=== PATIENT | female | born 1945 | race Caucasian/White ===

== ENCOUNTER 2020-05-06 17:46 | Emergency (ER) | payer BC ==
[~2020-05-06] VITALS: Ht 167.6 cm; Wt 88.0 kg
[2020-05-06 18:39] VITALS: BP 136/69
--- NOTE | 2020-05-06 18:47 | PHYS DOC ---
Past History Past Medical History: Cancer, High Cholesterol, Hypertension Past Surgical History: Hip Replacement, Knee Replacement, Other Additional Past Surgical Histo: Breast Alcohol Use: None General Adult EDM: Chief Complaint: MULTIPLE COMPLAINTS HPI: HPI: Patient is a [age] year old [sex] who presents with [] Review of Systems: Review of Systems: Constitutional: Denies fever or chills Eyes: Denies change in visual acuity HENT: Denies nasal congestion or sore throat Respiratory: Denies cough or shortness of breath Cardiovascular: Denies chest pain or edema GI: Denies abdominal pain, nausea, vomiting, bloody stools or diarrhea : Denies dysuria Musculoskeletal: Denies back pain or joint pain Integument: Denies rash Neurologic: Denies headache, focal weakness or sensory changes Endocrine: Denies polyuria or polydipsia Lymphatic: Denies swollen glands Psychiatric: Denies depression or anxiety Heart Score: Risk Factors: Risk Factors: DM, Current or recent (<one month) smoker, HTN, HLP, family history of CAD, obesity. Risk Scores: Score 0 - 3: 2.5% MACE over next 6 weeks - Discharge Home Score 4 - 6: 20.3% MACE over next 6 weeks - Admit for Clinical Observation Score 7 - 10: 72.7% MACE over next 6 weeks - Early Invasive Strategies Allergies: Allergies: Allergies Coded Allergies Type Severity Reaction Last Updated Verified Penicillins Allergy Unknown 05/06/20 Yes Physical Exam: PE: Constitutional: Well developed, well nourished, no acute distress, non-toxic appearance. [] HENT: Normocephalic, atraumatic, bilateral external ears normal, oropharynx moist, no oral exudates, nose normal. [] Eyes: PERRLA, EOMI, conjunctiva normal, no discharge. [] Neck: Normal range of motion, no tenderness, supple, no stridor. [] Cardiovascular:Heart rate regular rhythm, no murmur [] Lungs & Thorax: Bilateral breath sounds clear to auscultation [] Abdomen: Bowel sounds normal, soft, no tenderness, no masses, no pulsatile masses. [] Skin: Warm, dry, no erythema, no rash. [] Back: No tenderness, no CVA tenderness. [] Extremities: No tenderness, no cyanosis, no clubbing, ROM intact, no edema. [] Neurologic: Alert and oriented X 3, normal motor function, normal sensory function, no focal deficits noted. [] Psychologic: Affect normal, judgement normal, mood normal. [] Current Patient Data: Vital Signs: Vital Signs Date Time Temp Pulse Resp B/P (MAP) Pulse Ox O2 Delivery O2 Flow Rate FiO2 05/06/20 18:39 98.4 85 16 136/69 (91) 94 Room Air EKG: EKG: [] Radiology/Procedures: Radiology/Procedures: [] Course & Med Decision Making: Course & Med Decision Making Pertinent Labs and Imaging studies reviewed. (See chart for details) [] Dragon Disclaimer: [employer] Disclaimer: This electronic medical record was generated, in whole or in part, using a voice recognition dictation system. Departure Departure: Impression: Primary Impression: Post-vaccination reaction Qualified Codes: T88.1XXA - Other complications following immunization, not elsewhere classified, initial encounter Disposition: HOME/RESIDENCE PRIOR TO ADM Condition: STABLE Referrals: JOCELIN RIVERA (PCP) Patient Instructions: Immunization Reaction, Influenza Virus Vaccine injection Additional Instructions: Use over the counter Tylenol and/or Ibuprofen for pain or discomfort. Typically any reaction is self limiting (resolves on its own). SUJATA POLLARD DO May 06, 2020 18:46
== END 2020-05-06 18:53 | disposition home or self-care (01) ==
LOC: ER 17:46
DX: T88.1XXA Other complications following immunization, not elsewhere classified, initial encounter (principal); E78.00 Pure hypercholesterolemia, unspecified; I10 Essential (primary) hypertension; Z88.0 Allergy status to penicillin
CPT/HCPCS: 99284

== ENCOUNTER → 2020-06-01 | Outpatient (CLI) | payer BC, MEDICARE ==
[2020-05-06 18:39] VITALS: BP 136/69
--- NOTE | 2020-06-01 11:07 | RAD ---
EXAM: Right breast digital screening mammogram with tomosynthesis. HISTORY: 74-year-old female with a history of left breast cancer, status post left mastectomy, presents for screening mammography. TECHNIQUE: Full-field digital craniocaudal and mediolateral oblique 2D and 3D tomosynthesis images of the right breast are obtained for evaluation. Computer aided detection with [employer] software version 9.3 was applied. COMPARISON: There is no available study for comparison at the time of dictation. An addendum to this report will be submitted if a prior study becomes available. BREAST PARENCHYMAL DENSITY: Level B - Scattered fibroglandular densities. FINDINGS: There is suspicious mass, microcalcification or region of architectural distortion. There are multiple benign calcifications. IMPRESSION: BI-RADS Category 2: Benign finding(s). RECOMMENDATION: Annual mammography is recommended. If your mammogram demonstrates that you have dense breast tissue, which could hide abnormalities, and if you have other risk factors for breast cancer that have been identified, you might benefit from supplemental screening tests that may be suggested by your ordering physician. Dense breast tissue, in and of itself, is a relatively common condition. This information is not provided to cause undue concern, but rather to raise your awareness and to promote discussion with your physician regarding the presence of other risk factors, in addition to dense breast tissue. A report of your mammography results will be sent to you and your physician. You should contact your physician if you have any questions or concerns regarding this report. Mammography is a sensitive method for finding small breast cancers, but it does not detect them all and is not a substitute for careful clinical examination. A negative mammogram does not negate a clinically suspicious finding and should not result in delay in biopsying a clinically suspicious abnormality. PQRS compliance statement - Patient information was entered into a reminder system with a target due date for the next mammogram. "Our facility is accredited by the [employer] Mammography Program." Electronically signed by: Ella Bell MD (06/01/2020 11:04 AM) [id number]
== END ==
LOC: MAMMO 09:19
PROVIDERS: ATTEND Family Medicine
DX: Z12.31 Encounter for screening mammogram for malignant neoplasm of breast (principal); N64.89 Other specified disorders of breast
CPT/HCPCS: 77063; 77067

== ENCOUNTER → 2021-06-02 | Outpatient (CLI) | payer BC, MEDICARE ==
--- NOTE | 2021-06-02 11:21 | RAD ---
INDICATION : Routine Screening. COMPARISON: June 01, 2020 TECHNIQUE: Standard mammogram screening views of the bilateral breasts were obtained. CAD was utilize d. FINDINGS: The breasts are fatty density. There is repeat demonstration of multiple right breast calcifications without a new suspicious mass. There is no comparison available of the left breast since the prior e xamination was unilateral. Postoperative appearance of the left breast with multiple surgical clips a s well as architectural distortion and calcifications which can be seen with prior surgery with assoc iated scarring and fat necrosis. IMPRESSION: BI-RADS Category 2: Benign findings. The patient was placed into the recall system with a suggested recall date for follow up imaging. Mammography is the most sensitive method for finding small breast cancers, but it does not detect the m all and is not a substitute for careful clinical examination. A negative mammogram does not negate a clinically suspicious finding and should not result in delay in biopsying a clinically suspicious abnormality. Electronically signed by: Dov Villa MD (06/02/2021 11:18 AM) [id number]
== END ==
LOC: MAMMO 10:21
PROVIDERS: ATTEND Family Medicine
DX: Z12.31 Encounter for screening mammogram for malignant neoplasm of breast (principal)
CPT/HCPCS: 77067

== ENCOUNTER → 2021-12-20 | Outpatient (CLI) | payer BC, MEDICARE ==
--- NOTE | 2021-12-20 09:04 | RAD ---
EXAM: RENAL ULTRASOUND CLINICAL HISTORY: Chronic kidney disease COMPARISON: None available. TECHNIQUE: Ultrasound examination of the bilateral kidneys and urinary bladder was performed. FINDINGS: The right kidney measures 7.9 x 5.2 x 4.5 cm. The left kidney measures 8.0 x 3.9 x 4.6 cm. Echogenic appearing bilateral kidneys. No evidence of hydronephrosis. The urinary bladder is minimally distende d. IMPRESSION: 1. Echogenic appearing bilateral kidneys likely medical renal disease. Electronically signed by: Uli Tapia MD (12/20/2021 9:02 AM) [id number]
== END ==
LOC: US 08:02
PROVIDERS: ATTEND Internal Medicine Nephrology
DX: N18.32 Chronic kidney disease, stage 3b (principal); N32.89 Other specified disorders of bladder
CPT/HCPCS: 76770